=== PATIENT | female | born 1990 | race Two or more races ===

== ENCOUNTER → 2019-07-13 | Outpatient (CLI) | payer OTHER | END | disposition home or self-care (01) | LOC: PRENATAL 09:00 | DX: O35.3XX1 Maternal care for (suspected) damage to fetus from viral disease in mother, fetus 1 (principal); O99.89 Other specified diseases and conditions complicating pregnancy, childbirth and the puerperium ==

== ENCOUNTER 2019-12-12 10:47 | Inpatient (IN) | payer OTHER ==
[~2019-12-12] VITALS: Ht 160 cm; Wt 86.6 kg
[2019-12-12] MEDS ORDERED: SYNTHROID75 MCG PO (11:07)
[2019-12-12] MEDS ORDERED: PRENATAL TABLE1 EACH PO (11:07)
[2019-12-15] MEDS ORDERED: IBUPROFEN800 MG PO (13:48)
[2019-12-15] MEDS ORDERED: DOCUSATE SODIU100 MG PO (13:49)
== END 2019-12-15 16:06 | disposition home or self-care (01) | DRG 788 ==
LOC: LDR 10:47 → O/R 15:15 → OB/GYN 17:00
PROVIDERS: ADMIT Obstetrics & Gynecology
PROC: 4A1HXCZ Monitoring of Products of Conception, Cardiac Rate, External Approach (ICD-10-PCS; 2019-12-12)
PROC: 10D00Z1 Extraction of Products of Conception, Low, Open Approach (ICD-10-PCS; principal; 2019-12-12 13:00)
DX: O64.8XX0 Obstructed labor due to other malposition and malpresentation, not applicable or unspecified (principal); Z3A.40 40 weeks gestation of pregnancy; Z37.0 Single live birth